=== PATIENT | female | born 1980 | race Caucasian/White ===

== ENCOUNTER 2019-04-09 21:36 | Emergency (ER) | payer OTHER ==
[~2019-04-09] VITALS: Ht 152.4 cm; Wt 67.1 kg
[2019-04-09] MEDS ORDERED: LOSARTAN POTASS50 MG PO (22:06)
[2019-04-09] MEDS ORDERED: VENLAFAXINE HCL75 MG PO (22:07)
[2019-04-09] MEDS ORDERED: VISTARIL25 MG PO (22:08)
[2019-04-09] MEDS ORDERED: CYCLOBENZAPRINE10 MG PO (22:09)
[2019-04-09] MEDS ORDERED: OMEPRAZOLE20 MG PO (23:08)
== END 2019-04-09 23:17 | disposition home or self-care (01) ==
LOC: ED 21:36
DX: K27.9 Peptic ulcer, site unspecified, unspecified as acute or chronic, without hemorrhage or perforation (principal); I10 Essential (primary) hypertension
CPT/HCPCS: 80053; 81001; 83690; 84703; 85025; 96361; 96374; 96375; 99284-25; J1170; J2405; J7030